=== PATIENT | male | born 1940 | race Caucasian/White ===

== ENCOUNTER 2019-08-15 15:42 | Inpatient (IN) | payer OTHER ==
[~2019-08-15] VITALS: Ht 177.8 cm; Wt 88.0 kg
[~2019-08-15 15:42] MED LIST: ASPI81EC; ATOR10; Aspirin EC81 MG PO; CEPH500 PO; DIOVAN; IV ANTIBIOTIC; OXYACE5T PO; Prinivil10 MG PO; Sulfamethoxazo1 EAC4 PO; VALS80; VANCOMYCIN1.5 GM/250 IV
[2019-08-15 16:15] LABS: BASOPHILS ABSOLUTE AUTO 0.03 K/mm3 (0.00-0.23); BASOPHILS PERCENT AUTO 0 % (0-2); EOSINOPHILS ABSOLUTE AUTO 0.13 K/mm3 (0.00-0.68); EOSINOPHILS PERCENT AUTO 2 % (0-6); Hematocrit 49.6 % (37.0-53.0); Hemoglobin 15.6 g/dL (13.5-17.5); IMMATURE GRAN ABSOLUTE AUTO 0.06 K/mm3 (0.00-0.10); IMMATURE GRAN PERCENT AUTO 1 % (0-1); LYMPHOCYTES ABSOLUTE AUTO 0.68 K/mm3 (0.84-5.20); LYMPHOCYTES PERCENT AUTO 9 % (21-46); MONOCYTES ABSOLUTE AUTO 0.85 K/mm3 (0.16-1.47); MONOCYTES PERCENT AUTO 11 % (4-13); Mean Corpuscular HGB 27.9 pg (26.0-34.0); Mean Corpuscular HGB Conc 31.5 g/dL (31.5-36.5); Mean Corpuscular Volume 89 fL (80-100); Mean Platelet Volume 9.4 fL (9.1-12.4); NEUTROPHILS ABSOLUTE AUTO 5.96 K/mm3 (1.96-9.15); NEUTROPHILS PERCENT AUTO 77 % (41-73); Platelet Count 207 K/mm3 (150-400); RDW Coefficient Variation 14.5 % (11.7-14.2); RDW Standard Deviation 47.3 fL (35.1-46.3); White Blood Cell Count 7.71 K/mm3 (4.00-11.30)
[2019-08-15 16:39] LABS: Alanine Aminotransfer (ALT/SGP 20 U/L (12-78); Albumin, Blood 3.3 g/dL (3.4-5.0); Albumin/Globulin Ratio 0.8 (0.8-1.8); Alk Phos 165 U/L (50-136); Anion Gap 5 mmol/L (6-16); Aspartate Aminotrans (AST/SGOT 20 U/L (12-37); Bilirubin, Total 1.4 mg/dL (0.1-1.0); Blood Urea Nitrogen 16 mg/dL (8-24); Bun/Creatinine Ratio 19.4 (12.0-20.0); CO2, Blood 30 mmol/L (21-32); Calcium, Blood 9.2 mg/dL (8.5-10.1); Chloride, Blood 103 mmol/L (98-108); Creatinine, Blood 0.83 mg/dL (0.60-1.20); Globulin, Blood 4.4 g/dL (2.2-4.0); Glomerular Filtration Rate >60 (60-); Glucose, Blood 101 mg/dL (70-99); Potassium, Blood 4.1 mmol/L (3.5-5.5); Sodium, Blood 138 mmol/L (136-145); Total Protein, Blood 7.7 g/dL (6.4-8.2); Troponin I <0.015 ng/mL (0.000-0.040)
--- NOTE | 2019-08-15 20:00 | NUR ---
THIS RN ASSIGNED ADMIT.
--- NOTE | 2019-08-15 20:50 | NUR ---
REPORT FROM ALYSHA PADILLA RN IN ER. AWAITING PT. ROOM SET UP.
--- NOTE | 2019-08-15 21:10 | NUR ---
PT TO ROOM VIA [employer]. PT STANDS WITH OUT DIFF AND SITS ON NEW BED. PT ALERT AND ORIENTED. PLACED ON TELE. ASSESSMENT CHARTED. VSS. PT ON 4L O2 PER CANNULA. PT OBVIOUSLY SOB, ABLE TO TALK IN MULT WORD SENTENCES. ADMIT COMPLETE. MEAL AND WATER PROVIDED.
--- NOTE | 2019-08-15 21:30 | NUR ---
PT MEDICATED WITH LOVENOX PER EMAR. DENIES NEEDS. CALL LIGHT/REMOTE IN REACH.
--- NOTE | 2019-08-15 22:14 | NUR ---
PT SLEEPING. NADN. WILL CONTINUE TO MONITOR.
--- NOTE | 2019-08-16 00:45 | NUR ---
PT MEDICATED WITH SCHED SOLUMEDROL. VSS.
--- NOTE | 2019-08-16 04:08 | NUR ---
VSS. LAB AT BEDSIDE FOR DRAW. URINAL EMPTIED. PT DENIES NEEDS. LIGHTS DIMMED.
[2019-08-16 04:11] LABS: BASOPHILS ABSOLUTE AUTO 0.01 K/mm3 (0.00-0.23); BASOPHILS PERCENT AUTO 0 % (0-2); EOSINOPHILS PERCENT AUTO 0 % (0-6); Hematocrit 48.4 % (37.0-53.0); Hemoglobin 14.9 g/dL (13.5-17.5); IMMATURE GRAN ABSOLUTE AUTO 0.03 K/mm3 (0.00-0.10); IMMATURE GRAN PERCENT AUTO 1 % (0-1); LYMPHOCYTES ABSOLUTE AUTO 0.44 K/mm3 (0.84-5.20); LYMPHOCYTES PERCENT AUTO 9 % (21-46); MONOCYTES ABSOLUTE AUTO 0.07 K/mm3 (0.16-1.47); MONOCYTES PERCENT AUTO 2 % (4-13); Mean Corpuscular HGB 27.6 pg (26.0-34.0); Mean Corpuscular HGB Conc 30.8 g/dL (31.5-36.5); Mean Corpuscular Volume 90 fL (80-100); Mean Platelet Volume 9.4 fL (9.1-12.4); NEUTROPHILS ABSOLUTE AUTO 4.13 K/mm3 (1.96-9.15); NEUTROPHILS PERCENT AUTO 88 % (41-73); Platelet Count 181 K/mm3 (150-400); RDW Coefficient Variation 14.4 % (11.7-14.2); RDW Standard Deviation 47.4 fL (35.1-46.3); White Blood Cell Count 4.68 K/mm3 (4.00-11.30)
[2019-08-16 04:30] LABS: Alanine Aminotransfer (ALT/SGP 18 U/L (12-78); Albumin/Globulin Ratio 0.7 (0.8-1.8); Alk Phos 157 U/L (50-136); Anion Gap 3 mmol/L (6-16); Aspartate Aminotrans (AST/SGOT 19 U/L (12-37); Bilirubin, Total 0.8 mg/dL (0.1-1.0); Blood Urea Nitrogen 22 mg/dL (8-24); Bun/Creatinine Ratio 25.5 (12.0-20.0); CO2, Blood 33 mmol/L (21-32); Calcium, Blood 8.9 mg/dL (8.5-10.1); Chloride, Blood 104 mmol/L (98-108); Creatinine, Blood 0.86 mg/dL (0.60-1.20); Globulin, Blood 4.4 g/dL (2.2-4.0); Glomerular Filtration Rate >60 (60-); Glucose, Blood 165 mg/dL (70-99); Magnesium, Blood 2.4 mg/dL (1.6-2.4); Potassium, Blood 4.5 mmol/L (3.5-5.5); Sodium, Blood 140 mmol/L (136-145); Total Protein, Blood 7.4 g/dL (6.4-8.2)
--- NOTE | 2019-08-16 05:55 | NUR ---
SHIFT SUMMARY PT REMAINED ALERT AND ORIENTED THROUGHOUT SHIFT. FELL ASLEEP SHORTLY AFTER ARRIVING TO UNIT AND SLEPT WELL. VSS. PT ON 4-5L O2 PER NC. PT ABLE TO GET UP TO AND FROM RESTROOM WITHOUT ISSUE. PT APPETITE GOOD. PT DENIES PAIN. SWELLING TO LEFT LEG ONLY. PT POOR HISTORIAN. WILL CONTINUE TO MONIOR AND REPORT TO ONCOMING SHIFT.
--- NOTE | 2019-08-16 14:59 | NUR ---
REPORT GIVEN TO MERARY MEJAÍ TO ASSUME CARE ON MEDICAL FLOOR.
--- NOTE | 2019-08-16 15:59 | NUR ---
PCU TRANSFER- PT ARRIVED TO ROOM 329 VIA BED FROM PCU. PT A/OX4. PT DENIES ANY PAIN OR OTHER COMPLAINTS AT THIS TIME. LS COARSE WITH WHEEZES, ON 5L N/C. PT REPORTS OCC PRODUCTIVE COUGH OF THICK WHITE SPUTUM. PT REPORTS HE WEARS 02 2L N/C AT HS AT HOME BUT NONE DURING THE DAY. LLE CHRONICALLY SWOLLEN. PT ORIENTED TO ROOM AND CALL SYSTEM, CALL LIGHT IN REACH.
[2019-08-17 04:51] LABS: Base Excess Venous 6.9 mmol/L; Bicarbonate Venous 28.8 mmol/L (24.0-30.0); PCO2 Venous 61.6 mmHg (38-42); PO2 Venous 115 mmHg (38-42); pH Blood Venous 7.33 (7.34-7.37)
--- NOTE | 2019-08-17 05:09 | NUR ---
SHIFT SUMMARY: VSS. AFEB. AAOX3. INDEPENDENT IN ROOM. EXERTIONAL DYPNEA. NO RESP DIFFICULTY WHEN SPEAKING. 02 SATS 91-95% ON 5L VIA NC. INTERMITTENT PRODUCTIVE SOUNDING COUGH. COARSE RHONCHI AND EXPIRATORY WHEEZING AUSCULTATED THROUGHOUT LUNGS. ENCOURAGED COUGHING, RHONCHI ONLY SLIGHTLY IMPROVED. SOLUMEDROL ADMINISTERED ORDERED. PT SLEPT WELL AND HAS NOT REQUESTED PRN ANTITUSSIVE. NO ACUTE CHANGES OVERNIGHT, WILL CONT TO MONITOR.
[2019-08-17 05:14] LABS: Anion Gap 0 mmol/L (6-16); Blood Urea Nitrogen 32 mg/dL (8-24); Bun/Creatinine Ratio 35.6 (12.0-20.0); CO2, Blood 34 mmol/L (21-32); Calcium, Blood 8.5 mg/dL (8.5-10.1); Chloride, Blood 105 mmol/L (98-108); Glomerular Filtration Rate >60 (60-); Glucose, Blood 170 mg/dL (70-99); Potassium, Blood 4.4 mmol/L (3.5-5.5); Sodium, Blood 139 mmol/L (136-145)
[2019-08-17 05:34] LABS: BASOPHILS ABSOLUTE AUTO 0.01 K/mm3 (0.00-0.23); BASOPHILS PERCENT AUTO 0 % (0-2); EOSINOPHILS PERCENT AUTO 0 % (0-6); Hematocrit 44.8 % (37.0-53.0); Hemoglobin 13.9 g/dL (13.5-17.5); IMMATURE GRAN ABSOLUTE AUTO 0.08 K/mm3 (0.00-0.10); IMMATURE GRAN PERCENT AUTO 1 % (0-1); LYMPHOCYTES ABSOLUTE AUTO 0.41 K/mm3 (0.84-5.20); LYMPHOCYTES PERCENT AUTO 4 % (21-46); MONOCYTES ABSOLUTE AUTO 0.46 K/mm3 (0.16-1.47); MONOCYTES PERCENT AUTO 5 % (4-13); Mean Corpuscular HGB 28.1 pg (26.0-34.0); Mean Corpuscular Volume 91 fL (80-100); Mean Platelet Volume 9.9 fL (9.1-12.4); NEUTROPHILS ABSOLUTE AUTO 8.67 K/mm3 (1.96-9.15); NEUTROPHILS PERCENT AUTO 90 % (41-73); Platelet Count 194 K/mm3 (150-400); RDW Coefficient Variation 14.3 % (11.7-14.2); RDW Standard Deviation 47.1 fL (35.1-46.3); Red Blood Cell Count 4.94 M/mm3 (4.30-5.90); White Blood Cell Count 9.63 K/mm3 (4.00-11.30)
--- NOTE | 2019-08-17 18:15 | NUR ---
A+O, No acute changes noted during shift, medicated and monitored, call light in reach, saline locked, rm air, will continue to monitor and treat until share bsr with noc nurse
--- NOTE | 2019-08-18 05:02 | NUR ---
BLOOM CONVEYOR OPERATOR SUMMARY PT A/O X4. INDEPENDENT IN ROOM. DENIES CHEST PAIN, NAUSEA, DIZZINESS. ON 3 L O2 VIA NASAL CANNULA SATTING IN THE LOW 90'S. LUNGS WHEEZY THROUGHOUT UPON ASCULTATION. VSS. NO ACUTE CHANGES.
[2019-08-18 05:41] LABS: BASOPHILS PERCENT AUTO 0 % (0-2); EOSINOPHILS PERCENT AUTO 0 % (0-6); Hematocrit 41.8 % (37.0-53.0); Hemoglobin 12.9 g/dL (13.5-17.5); IMMATURE GRAN ABSOLUTE AUTO 0.11 K/mm3 (0.00-0.10); IMMATURE GRAN PERCENT AUTO 1 % (0-1); LYMPHOCYTES ABSOLUTE AUTO 0.45 K/mm3 (0.84-5.20); LYMPHOCYTES PERCENT AUTO 4 % (21-46); MONOCYTES ABSOLUTE AUTO 0.33 K/mm3 (0.16-1.47); MONOCYTES PERCENT AUTO 3 % (4-13); Mean Corpuscular HGB 27.7 pg (26.0-34.0); Mean Corpuscular HGB Conc 30.9 g/dL (31.5-36.5); Mean Corpuscular Volume 90 fL (80-100); Mean Platelet Volume 9.5 fL (9.1-12.4); NEUTROPHILS ABSOLUTE AUTO 9.23 K/mm3 (1.96-9.15); NEUTROPHILS PERCENT AUTO 91 % (41-73); Platelet Count 181 K/mm3 (150-400); RDW Coefficient Variation 14.3 % (11.7-14.2); RDW Standard Deviation 46.9 fL (35.1-46.3); Red Blood Cell Count 4.65 M/mm3 (4.30-5.90); White Blood Cell Count 10.12 K/mm3 (4.00-11.30)
[2019-08-18 06:13] LABS: Anion Gap 3 mmol/L (6-16); Blood Urea Nitrogen 28 mg/dL (8-24); Bun/Creatinine Ratio 36.4 (12.0-20.0); CO2, Blood 31 mmol/L (21-32); Calcium, Blood 8.2 mg/dL (8.5-10.1); Chloride, Blood 106 mmol/L (98-108); Creatinine, Blood 0.77 mg/dL (0.60-1.20); Glomerular Filtration Rate >60 (60-); Glucose, Blood 160 mg/dL (70-99); Potassium, Blood 4.7 mmol/L (3.5-5.5); Sodium, Blood 140 mmol/L (136-145)
[2019-08-18] MEDS ORDERED: AZIT250 PO (09:48)
[2019-08-18] MEDS ORDERED: GUAI600T33 PO (09:49)
[2019-08-18] MEDS ORDERED: FAMO20 PO (09:51)
[2019-08-18] MEDS ORDERED: PROAIR RESPICL90 MCG INH (09:51)
[2019-08-18] MEDS ORDERED: FLUTICASONE-SA1 EAC2 INH (09:52)
[2019-08-18] MEDS ORDERED: COMBIVENT RESPIM4 G1 INH (09:53)
[2019-08-18] MEDS ORDERED: PRED20 PO (09:53)
--- NOTE | 2019-08-18 11:22 | NUR ---
PT HAS D/C ORDERS. WAS NOTIFIED BY Quinton CLIFTON RN THAT PT EXHIBITING UNEQUAL PUPILS. THIS AUTHOR CAME TO ASSESS AND PERFORM NEURO EXAM. R PUPIL 7 MM, LEFT 1 MM, NON REACTIVE. HE IS A&O X 4, EQUAL STRENGTH AIN ALL EXTREMITIES. ABLE TO WALK STEADILY. NO FACIAL DROOP, TONGUE MIDLINE. PT STATED HE FEELS NO DIFFERENT THAN BEFORE THIS WAS NOTED. SPOKE TO DR. AGUILAR BY PHONE IF STILL OK TO D/C PATIENT; HE STATED OK TO D/C SINCE THE REST OF NEURO EXAM WAS NORMAL. PT WILL F/U WITH PCP NEXT WEEK.
--- NOTE | 2019-08-18 14:25 | NUR ---
PATIENT D/C'D TO HOME AT 1235 WITH HOME O2 DELIVERED BY [facility] [place]. HAS ALL BELONGINGS.
== END 2019-08-18 12:37 | disposition home or self-care (01) | DRG 189 ==
LOC: ER 15:42 → PCU 21:07 → MEDS 08-16 15:35 → ENPENDDIS 08-18 09:30 → MEDS 08-18 12:37
PROVIDERS: Emergency Medicine; Internal Medicine; Nurse Practitioner Acute Care; ADMIT Hospitalist
DX: J96.21 Acute and chronic respiratory failure with hypoxia (principal); J44.1 Chronic obstructive pulmonary disease with (acute) exacerbation; J96.22 Acute and chronic respiratory failure with hypercapnia; F17.210 Nicotine dependence, cigarettes, uncomplicated; I51.7 Cardiomegaly; I10 Essential (primary) hypertension; I73.9 Peripheral vascular disease, unspecified; Z79.82 Long term (current) use of aspirin
CPT/HCPCS: 36415; 71045; 71046; 80048; 80053; 82803; 83735; 83880; 84145; 84484; 85025; 93005; 93010; 93306; 94640; 94760; 96374; 96375; 99285-25; A9270-GY; J1650; J1940; J2930; U0002